=== PATIENT | female | born 1980 | race African-American/Black ===

== ENCOUNTER 2017-02-04 08:25 | Emergency (ER) | payer OTHER ==
[~2017-02-04] VITALS: Ht 167.6 cm; Wt 119.2 kg
[2017-02-04 09:00] LABS: HEMATOCRIT 44.9 % (36.0-46.0); MCH 27.4 PG (29.0-34.0); MCHC 30.7 G/DL (30.0-36.0); MCV 89.3 FL (83-99); MEAN PLAT.VOLUME 10.8 uM^3 (9.5-12.4); PLATELET COUNT 429 K/uL (156-360); RBC DIS.WIDTH-CV 12.4 % (11.8-14.6); RBC DIS.WIDTH-SD 40.4 % (39-53); RED BLOOD COUNT 5.03 M/uL (3.80-5.20); WHITE BLOOD COUNT 9.2 K/uL (4.1-10.2)
[2017-02-04 09:25] LABS: CHLORIDE 107 mEq/L (99-109); POTASSIUM 3.9 mEq/L (3.7-5.4); SODIUM 139 mEq/L (136-147)
[2017-02-04 09:28] LABS: ADD MIUA? YES; BILIRUBIN NEGATIVE; BLOOD LARGE; COLOR YELLOW ((YELLOW)); GLUCOSE (STRIP) NEGATIVE; KETONES NEGATIVE; LEUKOCYTES TRACE; NITRITE NEGATIVE; PROTEIN (STRIP) 30; SPECIFIC GRAVITY 1.019 (1.000-1.030); UROBILINOGEN 0.2 MG/DL (0.2-1.0)
[2017-02-04 09:28] LABS: GLUCOSE 90 mg/dL (70-99)
[2017-02-04 09:29] LABS: ANION GAP 7 MEQ/L (2-14)
[2017-02-04 09:30] LABS: TOTAL BILIRUBIN 0.3 mg/dL (0.0-1.0)
[2017-02-04 09:31] LABS: ALKALINE PHOSPHATASE 98 IU/L (3-129); GFR ESTIMATE (CALCULATED) > 59 mL/min/
[2017-02-04 09:32] LABS: UREA NITROGEN (BUN) 9 mg/dL (9-23)
[2017-02-04 09:35] LABS: LIPASE 9 U/L (1.0-51.0)
[2017-02-04 09:54] LABS: BACTERIA NONE SEEN /HPF; EPITHELIAL CELLS RARE /HPF; MUCUS 2+ /LPF; RED BLOOD CELLS TNTC /HPF (0-5); UCUL ADDED? NO; WHITE BLOOD CELLS 20-30 /HPF (0-5)
[2017-02-04] MEDS ORDERED: ZOFRAN4 MG PO (10:58)
[2017-02-04 11:00] VITALS: BP 125/58
== END 2017-02-04 11:23 | disposition home or self-care (01) ==
LOC: EME 08:25
PROVIDERS: Nurse Practitioner Family
DX: R11.2 Nausea with vomiting, unspecified (principal); R31.9 Hematuria, unspecified; F17.200 Nicotine dependence, unspecified, uncomplicated
CPT/HCPCS: 76705; 80053; 81003; 83690; 85027; 99281; 99284